=== PATIENT | female | born 1975 | race Caucasian/White ===

== ENCOUNTER 2020-05-04 14:35 | Outpatient (REF) | payer BC, SELFPAY ==
[2020-05-08 22:43] LABS: Patient Race White; SARS-CoV-2 RNA Undetected (Undetected); SARS-CoV-2 Specimen Source Nasal
== END 2020-05-04 14:55 ==
LOC: NCHCN 14:35
PROVIDERS: PCP Nurse Practitioner Family; Visit Provider Physician Assistant
DX: J02.9 Acute pharyngitis, unspecified (principal)
CPT/HCPCS: U0003

== ENCOUNTER 2020-08-09 09:17 | Outpatient (REF) | payer BC, SELFPAY ==
[2020-08-09 15:43] LABS: HCT 38.5 % (36.0-46.0); HGB 12.2 g/dL (11.2-15.7); MCH 28.8 pg (27.0-33.0); MCHC 31.7 % (32.0-36.0); MCV 90.8 fL (80-95); Platelet Count 206 10^3/uL (130-400); RBC 4.24 10^6/uL (3.93-5.22); RDW 12.3 % (11.7-14.6); RDW-SD 41.1 fL; WBC 4.62 10^3/uL (4.4-10.8)
[2020-08-09 16:43] LABS: ALT 89 U/L (14-59); AST 43 U/L (15-37); Albumin 3.8 g/dL (3.4-5.0); Alkaline Phosphatase 60 U/L (46-116); Anion Gap 5.9 mmol/L (3-11); BUN 11 mg/dL (7-18); Bilirubin, Total 0.7 mg/dL (0.2-1.0); CO2 31.1 mmol/L (21.0-32.0); CREATININE 0.8 mg/dL (0.55-1.02); Calcium 8.6 mg/dL (8.5-10.1); Calculated LDL 132 mg/dL (<100); Chloride 101 mmol/L (98-107); Cholesterol 206 mg/dL (<200); Folate 14.2 ng/mL (8.6-20.0); Glucose 92 mg/dL (74-106); HDL Cholesterol 66 mg/dL (40-60); Magnesium 2.1 mg/dL (1.8-2.4); Potassium 3.9 mmol/L (3.5-5.1); Sodium 138 mmol/L (136-145); TSH (W/Ref FT4) 4.21 uIU/mL (0.36-3.74); Triglyceride 40 mg/dL (<150); Vitamin B12 265 pg/mL (193-986)
[2020-08-09 17:07] LABS: FREE T4 0.87 ng/dL (0.76-1.46)
== END 2020-08-09 09:18 | disposition home or self-care (01) ==
LOC: NCHCN 09:17
PROVIDERS: PCP Nurse Practitioner Family; Visit Provider Nurse Practitioner Family
DX: R20.0 Anesthesia of skin (principal); R68.89 Other general symptoms and signs; Z13.220 Encounter for screening for lipoid disorders; Z11.59 Encounter for screening for other viral diseases; Z11.4 Encounter for screening for human immunodeficiency virus [HIV]
CPT/HCPCS: 80053; 80061; 85027; 82607; 82746; 83735; 84439; 84443

== ENCOUNTER 2020-11-08 17:00 | Emergency (ER) | payer BC, SELFPAY ==
[2020-11-08 17:08] VITALS: BP 143/71; PULSE 76; RESP 16; TEMP 37.6; O2SAT 97
--- NOTE | 2020-11-08 17:15 | DI.RAD_ITS ---
Exam(s) XR ANKLE RT COMPLETE XR FOOT RT COMPLETE EXAM: XR ANKLE RT COMPLETE CLINICAL HISTORY: s/p twisting injury, r/o fx TECHNIQUE: COMPARISON: CR,XR XR FOOT RT COMPLETE from 11/08/2020 FINDINGS: Three views of the ankle and three views of the foot were obtained. The ankle mortise is well mainta ined. Bony alignment appears within normal limits. There are mild degenerative changes of the joint s of foot and ankle. There is no evidence of acute fracture or dislocation. IMPRESSION: RADIATION DOSE DELIVERED: Total DLP
--- NOTE | 2020-11-08 17:17 | ED.GENADUL_ITS ---
Discharge Plan Disposition Patient Disposition: HOME Condition: Stable Discharge Details Clinical Impression: Ankle sprain Primary Care Provider: Christopher Richards ED Provider: Jayshree Altamirano Home Meds and New Rx's Prescriptions: Continued ibuprofen 200 MG capsule 200 mg PO PRN PRNRF: 0 naproxen 500 MG tablet 500 mg PO BID Qty: 20 RF: 0 bupropion HCl 100 mg tablet 100 mg PO DAILY RF: 0 escitalopram oxalate 20 mg tablet 10 mg PO DAILY RF: 0 Vyvanse 40 mg capsule 40 mg PO DAILY RF: 0 Discharge Instructions Instructions: Ankle Sprain (ED) Additional Instructions: Rest, ice, and elevate the affected area as much as possible. Alternate tylenol and motrin as needed and directed for pain. Follow-up with your primary care doctor in 1 week. Return to the emergency department with any worsening or new concerning symptoms. Referrals: Tez Balderas MD [ [facility] STAFF PHYSICIAN] - Discharge Data Discharge Physician: Jayshree Altamirano Medical Decision Making 45-year-old female presents with right ankle pain after twisting her ankle when stepping on uneven floor on a wooden deck. She has some edema and tenderness to right lateral malleolus and right proximal mid lateral foot. No right fifth metatarsal tenderness. No deformity. She is neurovascular intact. We will give a dose of ibuprofen and refer for imaging. X-rays reviewed and negative. Will place an ankle lace up splint. Patient already has crutches. She was given orthopedic information if needed. Usual and customary return precautions given prior to discharge. Medical Records Medical records reviewed: Yes I reviewed the patient's medical records. Imaging Data Radiologic Study: Radiologist's impression: XR Right Ankle Exam date and time: 11/08/2020 5:55 PM Age: 45 years old Clinical indication: Pain; Other: Foot and ankle; Prior surgery TECHNIQUE: Imaging protocol: XR Right ankle. Views: 3 or more views. COMPARISON: No relevant prior studies available. FINDINGS: Bones/joints: Plantar calcaneal spurring. No displaced fractures or dislocations identified. Soft tissues:? Grossly unremarkable. IMPRESSION: No displaced fractures or dislocations identified. XR Right Foot Exam date and time: 11/08/2020 5:55 PM Age: 45 years old Clinical indication: Pain; Other: S/P fall TECHNIQUE: Imaging protocol: XR Right foot. Views: 3 or more views. COMPARISON: No relevant prior studies available. FINDINGS: Bones/joints: Plantar calcaneal spurring.? No displaced fractures or dislocations identified. Soft tissues: Normal. IMPRESSION:? No displaced fractures or dislocations identified. HPI General Mode of arrival: ambulatory . Date/Time Provider Initiated Documentation: 11/08/20 17:02 . Limitations to Documentation: no limitations . Information obtained by: patient . HPI Narrative: Patient is a 45-year-old female presents with right ankle pain and tingling in her foot after twisting her ankle prior to arrival. Patient states she was walking on a deck when she stepped on uneven ground and twisted her right ankle. She states she is having pain in her right lateral ankle with some tingling on the top of her foot. She has not taken any medication for pain. Related Data Home Medications Medication Instructions Recorded Confirmed ibuprofen 200 mg PO PRN PRN 06/09/15 11/08/20 naproxen 500 mg PO BID #20 tablet 06/09/15 11/08/20 Vyvanse 40 mg PO DAILY 11/08/20 11/08/20 bupropion HCl 100 mg PO DAILY 11/08/20 11/08/20 escitalopram oxalate 10 mg PO DAILY 11/08/20 11/08/20 Previous Rx's Medication Instructions Recorded naproxen 500 mg PO BID #20 tablet 06/09/15 Allergies Allergy/AdvReac Type Severity Reaction Status Date / Time No Known Allergies Allergy Unverified 11/08/20 17:10 General Stated Complaint: Orthopedic ELINOR: 4 Review of Systems All systems reviewed & are unremarkable except as noted in HPI and below PFSH Medical History (Updated 11/08/20 @ 18:42 by Jayshree Altamirano DO) Anxiety Depression Surgical History (Updated 11/08/20 @ 17:18 by Jayshree Altamirano DO) H/O wisdom tooth extraction Social History Smoking/Tobacco Use Status: Never Smoking risk assessment performed?: Yes Drug use: Never Substance use type: does not use Do you feel safe in your relationship?: Yes Exam Const General: cooperative, healthy appearing and no acute distress HENMT Head: normal to inspection Eyes General: appearance normal, both eyes and all related structures Resp Effort & Inspection: normal respiratory effort and able to speak in complete sentences Cardio Rate: regular rate Neuro General: patient alert, patient awake and patient oriented x3 Cognition: normal cognition Speech: speech normal Extrem Ankle/foot/toe images: 1. Tenderness to palpation and mild edema extending from right lateral malleolus and right proximal mid lateral foot. Other: Right radial and ulnar pulses intact. No right fifth metatarsal tenderness. Toes normal to inspection. Psych Appearance: grossly normal Mental Status: mental status grossly normal Speech and Movement: speech and movement normal Affect: normal affect Course Vital Signs Vital signs: Vital Signs Temperature 99.7 F H 11/08/20 17:08 Pulse 76 11/08/20 17:08 Respiratory Rate 16 11/08/20 17:08 Blood Pressure 143/71 H 11/08/20 17:08 Pulse Oximetry 97 11/08/20 17:08 Temperature 99.7 F H 11/08/20 17:08 Temperature Source Skin 11/08/20 17:08 Pulse 76 11/08/20 17:08 Respiratory Rate 16 11/08/20 17:08 Respiratory Effort Non-Labored 11/08/20 17:08 Blood Pressure 143/71 H 11/08/20 17:08 Blood Pressure Position Sitting 11/08/20 17:08 Pulse Oximetry 97 11/08/20 17:08 Oxygen Delivery Method Room Air 11/08/20 17:08 Oxygen Flow Rate 0 11/08/20 17:08 Pain Level 6 11/08/20 17:08
[2020-11-08] MEDS: Ibuprofen 600 MG TAB PO (17:40)
--- NOTE | 2020-11-08 18:30 | DI.VRAD_ITS ---
PROCEDURE INFORMATION: Exam: XR Right Foot Exam date and time: 11/08/2020 5:55 PM Age: 45 years old Clinical indication: Pain; Other: S/P fall TECHNIQUE: Imaging protocol: XR Right foot. Views: 3 or more views. COMPARISON: No relevant prior studies available. FINDINGS: Bones/joints: Plantar calcaneal spurring. No displaced fractures or dislocations identified. Soft tissues: Normal. IMPRESSION: No displaced fractures or dislocations identified. Dictated and Authenticated by: Miky Aquino MD. Ordering:BRENDA Martell MD
--- NOTE | 2020-11-08 18:32 | DI.VRAD_ITS ---
PROCEDURE INFORMATION: Exam: XR Right Ankle Exam date and time: 11/08/2020 5:55 PM Age: 45 years old Clinical indication: Pain; Other: Foot and ankle; Prior surgery TECHNIQUE: Imaging protocol: XR Right ankle. Views: 3 or more views. COMPARISON: No relevant prior studies available. FINDINGS: Bones/joints: Plantar calcaneal spurring. No displaced fractures or dislocations identified. Soft tissues: Grossly unremarkable. IMPRESSION: No displaced fractures or dislocations identified. Dictated and Authenticated by: Miky Aquino MD. Ordering:BRENDA Martell MD
== END 2020-11-08 19:05 | disposition home or self-care (01) ==
PROVIDERS: Emergency Provider Physician Assistant; PCP Nurse Practitioner Family
DX: S93.491A Sprain of other ligament of right ankle, initial encounter (principal); W18.49XA Other slipping, tripping and stumbling without falling, initial encounter
CPT/HCPCS: 29515; 99284; 73610; 73630; 99283

== ENCOUNTER 2021-08-01 18:45 | Outpatient (REF) | payer BC, SELFPAY ==
[2021-08-01 20:48] LABS: ALT 36 U/L (14-59); AST 22 U/L (15-37); Albumin 4.3 g/dL (3.4-5.0); Alkaline Phosphatase 58 U/L (46-116); Bilirubin, Direct 0.1 mg/dL (0.0-0.2); Bilirubin, Total 0.6 mg/dL (0.2-1.0); FREE T4 0.91 ng/dL (0.76-1.46); Total Protein 7.7 g/dL (6.4-8.2)
== END 2021-08-01 18:46 | disposition home or self-care (01) ==
LOC: NCHCN 18:45
PROVIDERS: PCP Nurse Practitioner Family; Visit Provider Physician Assistant
DX: E07.81 Sick-euthyroid syndrome (principal); R94.5 Abnormal results of liver function studies
CPT/HCPCS: 80076; 84439; 84443

== ENCOUNTER 2021-10-31 10:20 | Emergency (ER) | payer BC, SELFPAY ==
[2021-10-31] VITALS (29 sets, daily range): BP systolic 89–138; BP diastolic 47–88; PULSE 58–83; RESP 8–22; TEMP 36.7; O2SAT 98–100
--- NOTE | 2021-10-31 10:15 | RT.EKG_ITS ---
APPROVED REPORT Exam: Resting ECG Reason for Exam: Weakness Patient Location: E HR:58 bpm ECG Measurements Heart Rate 58 AXIS ID 143 P 48 QRSd 96 QRS 30 QT 454 T 33 QTc 446 Conclusion Age and gender not entered, assume 50 yo male for purpose of ECG interpretation Sinus bradycardia...rate< 60. Sinus. Normal axis. No STEMI. I have reviewed and interpreted ECG and agree with software generated interpretation.
--- NOTE | 2021-10-31 10:18 | ED.GENADUL_ITS ---
Discharge Plan Disposition Patient Disposition: HOME Condition: Improving Discharge Details Clinical Impression: Epigastric abdominal pain, Nausea Primary Care Provider: Christopher Richards ED Provider: Jayshree Altamirano Home Meds and New Rx's Prescriptions: New ondansetron 4 mg tablet,disintegrating 4 mg PO TID PRN (Reason: nausea and vomiting) Qty: 6 0RF Continued ibuprofen 200 MG capsule 200 mg PO PRN PRN bupropion HCl 100 mg tablet 100 mg PO DAILY Label Comments: Take 1 tablet by mouth once a day escitalopram oxalate 20 mg tablet 10 mg PO DAILY Vyvanse 40 mg capsule 40 mg PO DAILY Label Comments: TAKE 1 CAPSULE BY MOUTH ONCE DAILY Discharge Instructions Instructions: Acute Nausea and Vomiting (ED), Epigastric Pain (ED) Additional Instructions: Your lab work and EKG today is reassuring and shows no evidence of acute concerning or significant findings. Take the Zofran as needed and directed for nausea and vomiting. Drink plenty of fluids and get plenty of rest. Follow-up with your primary care doctor in 1 week and for referral to general surgery if your symptoms do not improve or worsen for consideration for upper endoscopy. Return to the emergency department with any worsening or new concerning symptoms if you develop fever, chest pain, shortness of breath, persistent vomiting or any other concerns for further evaluation and consideration for imaging if indicated. Referrals: Mehnaz Yao DO [OSTEOPATHIC DOCTOR] - Discharge Data Discharge Physician: Jayshree Altamirano Medical Decision Making 1020 -- 46-year-old female with a history of anxiety, depression and ADHD who presents with nausea, lightheadedness and epigastric burning pain for the past hour. Vitals within normal limits. EKG on arrival notes a rate of 58, sinus, normal axis, no STEMI and nondiagnostic. Patient appears in no acute distress and nontoxic. She has epigastric tenderness to palpation. Differential diagnosis includes gastroenteritis, influenza A, gastritis. She has no right or left lower abdominal tenderness so history and presentation does not appear consistent with appendicitis, diverticulitis. She has no right upper quadrant abdominal pain so cholelithiasis and cholecystitis is seen less likely. We will hold on imaging at this time. We will place an IV, bolus IV fluids, screening labs, and give IV Phenergan, Pepcid, GI cocktail and reassess. 1215 -- labs reviewed and unremarkable. Normal white blood cell count. Normal electrolytes. Troponin negative. Lipase within normal limits. Fluvid negative. Patient reassessed and she denies any nausea or pain at this time. She is agreeable with plan for staying for delta troponin. 1430 --repeat troponin negative. Patient reassessed and she remains pain and nausea free. Abdomen soft and nontender. Patient feels comfortable going home. She was able to tolerate p.o. We will send with Bon. She was given general surgery follow-up if her symptoms do not improve or worsen. Usual and customary return precautions given prior to discharge. Medical Records Medical records reviewed: Yes I reviewed the patient's medical records. Lab Data Lab results reviewed: Yes I reviewed the patient's lab results. Labs: Laboratory Tests Range/Units 10/31/21 10/31/21 10/31/21 11:05 11:05 11:05 WBC (4.4-10.8) 10^3/uL 6.71 RBC (3.93-5.22) 10^6/uL 4.57 Hgb (11.2-15.7) g/dL 13.1 Hct (36.0-46.0) % 40.9 MCV (80-95) fL 90 MCH (27.0-33.0) pg 28.7 MCHC (32.0-36.0) % 32.0 RDW (11.7-14.6) % 12.4 Plt Count (130-400) 10^3/uL 191 MPV (8.0-11.0) fL 12.3 H Immature Gran % 0.3 Neutrophils % 74.1 Lymphocytes % 16.8 Monocytes % 7.7 Eosinophils % 0.7 Basophils % 0.4 Nucleated RBC % (0.0-0.3) % 0.0 Absolute Neutrophils (1.2-6.7) 10^3/uL 4.96 Absolute Lymphocytes (1.2-3.4) 10^3/uL 1.13 L Absolute Monocytes (0.1-0.8) 10^3/uL 0.52 Absolute Eosinophils (0.0-0.7) 10^3/uL 0.05 Absolute Basophils (0.0-0.2) 10^3/uL 0.03 Sodium (136-145) mmol/L 138 Potassium (3.5-5.1) mmol/L 3.7 Chloride (98-107) mmol/L 102 Carbon Dioxide (21.0-32.0) mmol/L 26.0 Anion Gap (3-11) mmol/L 10.0 BUN (7-18) mg/dL 13 Creatinine (0.55-1.02) mg/dL 0.8 Estimated GFR/1.73 m2 (mL/min/1.73m2) >= 60.00 Glucose (74-106) mg/dL 124 H Calcium (8.5-10.1) mg/dL 8.3 L Magnesium (1.8-2.4) mg/dL 2.0 Total Bilirubin (0.2-1.0) mg/dL 0.6 AST (15-37) U/L 10 L ALT (14-59) U/L 23 Alkaline Phosphatase (46-116) U/L 52 Troponin I (<or=60) ng/L < 50 Total Protein (6.4-8.2) g/dL 7.6 Albumin (3.4-5.0) g/dL 4.0 Lipase (73-393) U/L 96 COVID-19 Source Nasopharynx SARS-CoV-2 (PCR) (Negative) Negative Influenza Type A (PCR) (Negative) Negative Influenza Type B (PCR) (Negative) Negative RSV (PCR) (Negative) Negative Range/Units 10/31/21 13:55 WBC (4.4-10.8) 10^3/uL RBC (3.93-5.22) 10^6/uL Hgb (11.2-15.7) g/dL Hct (36.0-46.0) % MCV (80-95) fL MCH (27.0-33.0) pg MCHC (32.0-36.0) % RDW (11.7-14.6) % Plt Count (130-400) 10^3/uL MPV (8.0-11.0) fL Immature Gran % Neutrophils % Lymphocytes % Monocytes % Eosinophils % Basophils % Nucleated RBC % (0.0-0.3) % Absolute Neutrophils (1.2-6.7) 10^3/uL Absolute Lymphocytes (1.2-3.4) 10^3/uL Absolute Monocytes (0.1-0.8) 10^3/uL Absolute Eosinophils (0.0-0.7) 10^3/uL Absolute Basophils (0.0-0.2) 10^3/uL Sodium (136-145) mmol/L Potassium (3.5-5.1) mmol/L Chloride (98-107) mmol/L Carbon Dioxide (21.0-32.0) mmol/L Anion Gap (3-11) mmol/L BUN (7-18) mg/dL Creatinine (0.55-1.02) mg/dL Estimated GFR/1.73 m2 (mL/min/1.73m2) Glucose (74-106) mg/dL Calcium (8.5-10.1) mg/dL Magnesium (1.8-2.4) mg/dL Total Bilirubin (0.2-1.0) mg/dL AST (15-37) U/L ALT (14-59) U/L Alkaline Phosphatase (46-116) U/L Troponin I (<or=60) ng/L < 50 Total Protein (6.4-8.2) g/dL Albumin (3.4-5.0) g/dL Lipase (73-393) U/L COVID-19 Source SARS-CoV-2 (PCR) (Negative) Influenza Type A (PCR) (Negative) Influenza Type B (PCR) (Negative) RSV (PCR) (Negative) ECG Data Attestation: I personally reviewed and interpreted this ECG (s) as follows: Interpretation: Rate of 58, sinus, normal axis, no STEMI. HPI General Mode of arrival: ambulatory . Date/Time Provider Initiated Documentation: 10/31/21 10:32 . Limitations to Documentation: no limitations . Information obtained by: patient . HPI Narrative: Patient is a 46-year-old female with a history of anxiety, depression, ADHD who presents with nausea, epigastric discomfort and dizziness that started approximately 1 hour prior to arrival. Patient states she was sitting at her computer at work when she developed nausea and epigastric burning. She denies any radiation of her pain and states it was 5/10 at its worst and is currently 1/10. She states she called her and stated that she needed to leave work. She states when she exited the building and began walking she developed lightheadedness. She states when she was sitting in the car and had nausea she developed tingling in her hands which lasted approximately 10 minutes and then resolved. She states she has some lightheadedness, nausea and minimal epigastric burning discomfort at this time. She states her children have been sick recently with a stomach bug. She states her son last week had upper abdominal pain and fever. She states her daughter this morning complained of upper abdominal pain and a fever of 101. Patient denies any known fever of her own, vomiting, diarrhea, urinary symptoms, recent antibiotic or recent travel. 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 She was given Zofran in route by EMS with some relief. Related Data Home Medications Medication Instructions Recorded Confirmed ibuprofen 200 mg capsule 200 mg PO PRN PRN 06/09/15 10/31/21 bupropion HCl 100 mg tablet 100 mg PO DAILY 11/08/20 10/31/21 escitalopram oxalate 20 mg tablet 10 mg PO DAILY 11/08/20 10/31/21 lisdexamfetamine 40 mg capsule 40 mg PO DAILY 11/08/20 10/31/21 (Vyvanse) ondansetron 4 mg disintegrating 4 mg PO TID PRN nausea and 10/31/21 tablet vomiting #6 tabs Previous Rx's Medication Instructions Recorded ondansetron 4 mg disintegrating 4 mg PO TID PRN nausea and 10/31/21 tablet vomiting #6 tabs Allergies Allergy/AdvReac Type Severity Reaction Status Date / Time No Known Allergies Allergy Unverified 10/31/21 10:56 General Stated Complaint: Nausea/Vomit/Diar ELINOR: 3 Review of Systems All systems reviewed & are unremarkable except as noted in HPI and below Constitutional Constitutional: Denies chills, Denies excessive sweating, Denies fatigue, Denies fever(s), Denies weakness and Denies weight loss Eyes Eyes: Reports system reviewed and no additional complaints, except as documented and Denies blurry vision ENT Ears, Nose, Mouth, and Throat: Denies vertigo, Denies dizziness, Denies otalgia, Denies nasal congestion, Denies sore throat and Denies throat swelling Cardiovascular Cardiovascular: Denies chest pain, Denies syncope, Denies rapid heart rate and Denies dyspnea Respiratory Respiratory: Denies chest congestion, Denies cough, Denies pain on inspiration and Denies dyspnea Gastrointestinal Gastrointestinal: Reports abdominal pain, Denies diarrhea, Reports nausea and Denies vomiting Genitourinary Genitourinary: Denies hematuria, Denies dysuria and Denies flank pain Musculoskeletal Musculoskeletal: Denies back pain and Denies joint swelling Integumentary/Breasts Skin/Breast: Denies lesions and Denies rash Neurologic Neurologic: Denies behavioral changes, Denies confusion, Denies vertigo, Denies dizziness, Denies syncope, Denies localized weakness and Denies weakness Psychiatric Psychiatric: Denies behavioral changes, Denies confusion and Denies depression Endocrine Endocrine: Denies excessive sweating and Denies fatigue Hematologic/Lymphatic Hematologic/Lymphatic: Denies easy bruising and Denies lymphadenopathy Allergic/Immunologic Allergic/Immunologic: Denies throat swelling PFSH All Active Problems (Updated 10/31/21 @ 14:57 by Jayshree Altamirano DO) Ankle sprain (Acute) Epigastric abdominal pain (Acute) Nausea (Acute) Medical History (Updated 10/31/21 @ 14:57 by Jayshree Altamirano DO) Anxiety Depression Surgical History (Updated 11/08/20 @ 17:18 by Jayshree Altamirano DO) H/O wisdom tooth extraction Social History Smoking/Tobacco Use Status: Never Smoking risk assessment performed?: Yes Drug use: Never Substance use type: other Details: edibles Do you feel safe at home: Yes Do you feel safe in your relationship?: Yes Exam Const General: cooperative and no acute distress Orientation: alert, awake and oriented x3 HENMT Head: normal to inspection Ears: hearing grossly normal bilaterally and external ears normal General nose exam: external nose normal Face and sinus: normal facial exam Mouth: oral mucosae normal Teeth and gingiva: dentition normal Throat: posterior oropharynx normal Eyes General: appearance normal, both eyes and all related structures Eyelids: eyelids normal Pupils: PERRL EOM: EOM intact bilaterally Neck Neck: normal visual inspection Lymphatic: no lymphadenopathy noted Chest Chest: normal inspection of the chest Resp Effort & Inspection: normal respiratory effort and able to speak in complete sentences Auscultation: clear to auscultation bilaterally Cardio Rate: regular rate Rhythm: regular rhythm GI Inspection: normal to inspection Palpation: soft, not firm, no guarding, no hepatosplenomegaly, no masses and tender in the epigastrum Auscultation: hypoactive bowel sounds Back/Spine/Pelvis Back: no CVA tenderness Skin General skin exam: no rashes or lesions noted Neuro General: patient alert and patient awake Cognition: normal cognition Speech: speech normal Gait: normal gait Motor: muscle tone normal throughout Sensory Exam: no sensory deficits noted Extrem General: normal to inspection, full ROM and capillary refill normal Psych Appearance: grossly normal Mental Status: mental status grossly normal Speech and Movement: speech and movement normal Affect: normal affect Thought Process: normal
[2021-10-31] MEDS: Normal Saline 1,000 ML 1000 ML IV (11:18)
[2021-10-31] MEDS: Famotidine 20 MG/2 ML VIAL IVP (11:18)
[2021-10-31 11:22] LABS: Abs Immature Grans 0.02 10^3/uL (0.0-0.06); Absolute Basophil Count 0.03 10^3/uL (0.0-0.2); Absolute Eosinophil Count 0.05 10^3/uL (0.0-0.7); Absolute Lymphocyte Count 1.13 10^3/uL (1.2-3.4); Absolute Monocyte Count 0.52 10^3/uL (0.1-0.8); Absolute Neutrophil Count 4.96 10^3/uL (1.2-6.7); Basophils % 0.4; Eosinophils % 0.7; HCT 40.9 % (36.0-46.0); HGB 13.1 g/dL (11.2-15.7); Immature Grans % 0.3; Lymphocytes % 16.8; MCH 28.7 pg (27.0-33.0); MCV 90 fL (80-95); MPV 12.3 fL (8.0-11.0); Monocytes % 7.7; Neutrophils % 74.1; Platelet Count 191 10^3/uL (130-400); RBC 4.57 10^6/uL (3.93-5.22); RDW 12.4 % (11.7-14.6); RDW-SD 40.1 fL; WBC 6.71 10^3/uL (4.4-10.8)
[2021-10-31 11:36] LABS: ALT 23 U/L (14-59); AST 10 U/L (15-37); Alkaline Phosphatase 52 U/L (46-116); BUN 13 mg/dL (7-18); Bilirubin, Total 0.6 mg/dL (0.2-1.0); CREATININE 0.8 mg/dL (0.55-1.02); Calcium 8.3 mg/dL (8.5-10.1); Chloride 102 mmol/L (98-107); Glucose 124 mg/dL (74-106); Lipase 96 U/L (73-393); Potassium 3.7 mmol/L (3.5-5.1); Sodium 138 mmol/L (136-145); Total Protein 7.6 g/dL (6.4-8.2); Troponin I < 50 ng/L (<or=60)
[2021-10-31 12:03] LABS: COVID-19 PCR Negative (Negative); Influenza A PCR Negative (Negative); Influenza B PCR Negative (Negative); RSV PCR Negative (Negative)
[2021-10-31 12:31] LABS: Source Nasopharynx
[2021-10-31 14:20] LABS: Troponin I < 50 ng/L (<or=60)
[2021-10-31] MEDS: Ondansetron O.D.T. 4 MG TABEF, 3 TABS/BTL PO (15:13)
== END 2021-10-31 15:08 | disposition home or self-care (01) ==
PROVIDERS: Emergency Provider Physician Assistant; PCP Nurse Practitioner Family
DX: R10.13 Epigastric pain (principal); R11.0 Nausea
CPT/HCPCS: 36415; 80053; 81025; 83690; 87637; 93005; 96361; 96365; 96375; 99284; 83735; 84484; 85025; 93010

== ENCOUNTER 2023-01-09 14:51 | Outpatient (CLI) | payer BC, SELFPAY ==
--- NOTE | 2023-01-09 | DI.RAD_ITS ---
Exam(s) XR CHEST 2V PA LATERAL EXAM: XR CHEST 2V PA LATERAL CLINICAL HISTORY: PERSIST COUGH, R05.3,SOB,R06.O2 TECHNIQUE: 2D digital imaging was performed. COMPARISON: CR CHEST 2 VIEWS PA,LAT from 01/16/2017 FINDINGS: HEART: Normal size. Aorta: Not dilated. PULMONARY VASCULATURE: Normal. LUNGS: Clear. PLEURAL SPACE: No pleural effusion or pneumothorax. BONE:Unremarkable for age. IMPRESSION: No acute abnormality. DATA REPOSITORY: RADIATION DOSE DELIVERED:
== END 2023-01-09 15:11 ==
LOC: DI 14:51
PROVIDERS: PCP Nurse Practitioner Family; Visit Provider Nurse Practitioner Family
DX: R06.03 Acute respiratory distress (principal); R05.3 Chronic cough
CPT/HCPCS: 71046

== ENCOUNTER 2023-02-25 09:20 | Outpatient (REF) | payer BC, SELFPAY ==
[2023-02-25 16:08] LABS: Anion Gap 6.8 mmol/L (3-11); BUN 8 mg/dL (7-18); CO2 28.2 mmol/L (21.0-32.0); CREATININE 0.9 mg/dL (0.55-1.02); Calcium 8.3 mg/dL (8.5-10.1); Calculated LDL 169 mg/dL (<100); Chloride 101 mmol/L (98-107); Cholesterol 241 mg/dL (<200); Estimated GFR 79.35 (mL/min/1.73m2); Glucose 98 mg/dL (74-106); HDL Cholesterol 62 mg/dL (40-60); Potassium 3.6 mmol/L (3.5-5.1); Sodium 136 mmol/L (136-145); TSH 2.36 uIU/mL (0.36-3.74); Triglyceride 51 mg/dL (<150)
[2023-02-25 17:08] LABS: FREE T4 0.84 ng/dL (0.76-1.46)
== END 2023-02-25 09:21 | disposition home or self-care (01) ==
LOC: NCHCN 09:20
PROVIDERS: PCP Nurse Practitioner Family; Visit Provider Physician Assistant
DX: E78.5 Hyperlipidemia, unspecified (principal); E07.81 Sick-euthyroid syndrome
CPT/HCPCS: 80048; 80061; 84439; 84443